=== PATIENT | male | born 1985 | race Caucasian/White ===

== ENCOUNTER 2018-01-19 16:14 | Emergency (ER) | payer BC, OTHER ==
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
== END 2018-01-19 17:25 | disposition home or self-care (01) ==
LOC: MW.ED 16:14
DX: M25.512 Pain in left shoulder (principal); V89.2XXA Person injured in unspecified motor-vehicle accident, traffic, initial encounter
CPT/HCPCS: 71045; 72040; 72170; 73030; 80305; 81001; 93005; 99284; G0390; 99283